=== PATIENT | male | born 1950 | race Caucasian/White ===

== ENCOUNTER 2020-11-27 05:26 | Observation (INO) ==
--- NOTE | 2020-11-12 20:26 | PAT Medication Instructions ---
Medication Instructions Date of Service November 12, 2020 Home Medications apixaban 5 mg tablet (Eliquis) 5 mg PO BID metoprolol tartrate 25 mg tablet 12.5 mg PO BID simvastatin 80 mg tablet 40 mg PO HS lisinopril 20 mg tablet 20 mg PO QAM ASK your prescriber and surgeon apixaban 5 mg tablet (Eliquis) 5 mg PO BID DO NOT take the morning of surgery lisinopril 20 mg tablet 20 mg PO QAM Take morning of surgery With a small sip of water, OTHERWISE NOTHING TO EAT OR DRINK AFTER MIDNIGHT: metoprolol tartrate 25 mg tablet 12.5 mg PO BID Take evening before surgery metoprolol tartrate 25 mg tablet 12.5 mg PO BID simvastatin 80 mg tablet 40 mg PO HS Other Notes If you have any questions please call us at [phone] or [phone] or [phone] or [phone]
--- NOTE | 2020-11-14 09:15 | Anesthesiology Consultation ---
Date of Service November 14, 2020 Assessment & Plan (1) Encounter for pre-operative examination: - COVID screening: Per assessment on 11/05: Travel screen negative, no known COVID-19 positive contacts or current COVID-19 related symptoms. Patient vacc inated. Surgeon arranging preop COVID testing. Awaiting results. - Geethaquis instructions: per surgeon/prescriber/anticoagulation clinic - PCP office visit (11/12/20): "able to perform 4 METs functional capacity: Yes.. using calculator from [employer].. The patient is estimated perioperative cardiac (for ACS) risk is 0.38%. The patient is average pulmonary risk." Chart Review Chart Review: Acceptable Risk for Surgery and Patient seen in Pre Admission Testing Teaching & Discussion Pre-Anesthesia Teaching/Discussion Notes: Instructed NPO after midnight before surgery,except medications with 15 cc of water. Medication instructions provided according to the PAT guidelines. History Surgery Operation Date: 11/28/20 10:05 Proposed Procedures p L3-L4 Decompression with Possible Coflex Spinal Cord Monitoring - Larry Looney DO Height/Weight Height: 6 ft 3 in Weight: 127.5 kg Allergies Allergy/AdvReac Type Severity Reaction Status Date / Time povidone-iodine Allergy Severe Skin Unverified 11/14/20 10:02 [From Betadine] blistering and "leather-like" skin soap [From Betadine] Allergy Severe Skin Unverified 11/14/20 10:02 blistering and "leather-like" skin Medications Home Medications Medication Instructions Recorded Confirmed Last Taken apixaban 5 mg tablet (Eliquis) 5 mg PO BID 01/30/18 11/05/20 Unknown metoprolol tartrate 25 mg tablet 12.5 mg PO BID 01/30/18 11/05/20 Unknown simvastatin 80 mg tablet 40 mg PO HS 01/30/18 11/05/20 Unknown lisinopril 20 mg tablet 20 mg PO QAM 11/05/20 11/05/20 Unknown Past Medical History Medical History (Updated 11/14/20 @ 09:47 by Shahla Willett) Atrial fibrillation follows with Dr. Erwin ([facility]) Chronic back pain Degenerative disc disease Gout Hyperlipidemia Hypertension Exercise / Class Metabolic Activity II 4-5 Yardwork/Stairs/Walk up hill (one FS (no CP, no SOB)) Past Family History Family History Father Stented coronary artery Other No family history of adverse response to anesthesia Past Surgical History Surgical History H/O inguinal hernia repair right (multiple) History of carpal tunnel surgery bilateral History of cholecystectomy History of colonoscopy History of elbow surgery ulnar nerve release left x1 ulnar nerve release right x2 History of endoscopic sinus surgery Hx of cervical discectomy Hx of lumbar discectomy S/P epidural steroid injection Past Anesthesia History No Hx of Anesthesia Complications and No Family Hx of Anesthesia Complications History of PONV No Hx of PONV and No Hx of Motion Sickness Social History Smoking Status: Former smoker tobacco type: cigarettes and smokeless tobacco Do You Dip or Chew Tobacco: Yes (1 can/week (advised none DOS)) Smoking End Date: Quit 1979 Hx Alcohol Use: Yes Alcohol type: hard liquor alcohol intake frequency: 0-2 drinks per day (1 (12 ounce) drink/day ) Hx Substance Use: No substance use type: does not use Review of Systems Patient denies chest pain, shortness of breath, dyspnea on exertion, fever, chills, cough, wheezing, palpitations. Physical Exam Vital Signs VITALS BP 119/81 P 69 TEMP 98.4 SP02 95%RA RESP 18 PHYSICAL Mildly decreased cervical extension range of motion. Full TMJ range of motion. TMD 4 finger breaths Mallampati Score 1 Dentition: full upper/partial lower Lungs: clear throughout to auscultation Cardiac: regular rate and rhythm, no murmurs noted Spine: normal Carotid arteries: negative bruit Extremities: no edema Lab Results Anesthesia Preop Results Results Anesthesia Widget: WBC 13.31 K/uL (4.8-10.8) H 11/14/20 Hgb 15.8 g/dL (14.0-18.0) 11/14/20 Hct 45.9 % (42-52) 11/14/20 Plt 189 K/uL (130-400) 11/14/20 PT 11.4 Seconds (9.0-12.0) 11/14/20 PTT 28.7 Seconds (21.0-31.0) 11/14/20 INR 1.1 (0.9-1.1) 11/14/20 Urine Color [place] 11/14/20 Urine Appearance Clear (Clear) 11/14/20 Urine pH 5.0 (4.5-7.5) 11/14/20 Urine Specific [place] 1.033 (1.000-1.030) H 11/14/20 Urine Protein Trace (Negative) H 11/14/20 Urine Glucose (UA) Negative (Negative) 11/14/20 Urine Ketones Trace (Negative) H 11/14/20 Urine Blood Negative (Negative) 11/14/20 Urine Nitrite Positive (Negative) A 11/14/20 Urine Bilirubin 1+ (Negative) H 11/14/20 Urine Urobilinogen Negative (Negative) 11/14/20 Urine Leukocyte Esterase 1+ (Negative) H 11/14/20 Urine WBC (Auto) 1-5 /hpf (0-5) 11/14/20 Urine RBC (Auto) 5-10 /hpf (0-4) H 11/14/20 Urine Hyaline Casts (Auto) 5-10 /lpf (0-5) H 11/14/20 Urine Epithelial Cells (Auto) >30 /lpf (0-5) H 11/14/20 Urine Bacteria (Auto) Negative (Negative) 11/14/20 Blood Type A Positive 11/14/20 Antibody Screen NEGATIVE 11/14/20 Lab Comments: Surgeon's office made aware of elevated WBC* Testing Laboratory Results 10/13/20 SODIUM 138 POTASSIUM 4.7 CHLORIDE 104 CO2 22 BUN 13 CREATININE 1.2 GLUCOSE 123 Electrocardiogram Date: 11/12/20 NSR at 65bpm. LAD. Chest X-Ray Date: 11/14/20 Findings: + NAD Echocardiogram Date: 01/31/18 EF 55 to 60%. No regional motion abnormality. Grade 1 diastolic dysfunction. No significant valvular disease. Stress Test Date: 03/06/18 Type: exercise Negative for ischemia by EKG criteria. 86% MPHR. 7.0 METS.
[2020-11-27] MEDS ORDERED: CeleBREX 200 MG CAP PO SCH (06:00)
[2020-11-27] MEDS ORDERED: GABAPENTIN 300 MG CAP PO SCH (06:00)
[2020-11-27] MEDS ORDERED: ACETAMINOPHEN 500 MG TAB PO SCH (06:00)
[2020-11-27] MEDS ORDERED: LR 15ML/HR IV SCH (06:00)
[2020-11-27] MEDS ORDERED: LIDOCAINE 2% 2 ML VIAL/AMP(20MG/ML) INFIL ONE (06:38)
[2020-11-27] MEDS ORDERED: DEXAMETHASONE SOD INJ 4 MG/ML VIAL ONE (06:38)
[2020-11-27] MEDS ORDERED: LARYING-O-JET KIT (LTA) ONE (06:38)
[2020-11-27] MEDS ORDERED: ONDANSETRON INJ 2 MG/ML 2 ML VIAL ONE (06:38)
[2020-11-27] MEDS ORDERED: ROCURONIUM BROMIDE 10 MG/ML 5 ML VIAL IV ONE ×4 (06:38→09:52)
[2020-11-27] MEDS ORDERED: fentaNYL citrate 100 MCG/2 ML VIAL ONE ×2 (06:38→10:27)
[2020-11-27] MEDS ORDERED: PROPOFOL IV EMULSION 10 MG/ML 20 ML VIAL IV ONE ×2 (06:38→06:43)
[2020-11-27] MEDS ORDERED: HYDROmorphone INJ 2 MG/ML SYR/VIAL ONE (06:39)
[2020-11-27] MEDS ORDERED: EPINEPHrine INJ 1 MG/ML AMP ONE (07:16)
[2020-11-27] MEDS ORDERED: BUPIVACAINE 0.5 % 5 MG/1 ML MPF 30ML VIAL ONE (07:16)
--- NOTE | 2020-11-27 07:55 | History & Physical Bridge Note ---
Date of Service November 27, 2020 History & Physical Bridge Note I have examined the patient, reviewed the History & Physical and in the interval since the performance of the History & Physical I have noted the following changes of clinical significance: no changes noted
--- NOTE | 2020-11-27 07:56 | History & Physical Report ---
Date of Service November 27, 2020 Assessment & Plan (1) Neurogenic claudication due to lumbar spinal stenosis: Plan: L3-L4 decompression with possible Coflex History of Present Illness Chief Complaint: Back and bilateral leg pain Primary Care Provider: NO PCP This is a 70-year-old male who presents with chronic persistent back and leg pain after failing extensive course of nonoperative care is here for surgical invention. Allergies Allergy/AdvReac Type Severity Reaction Status Date / Time povidone-iodine Allergy Severe Skin Verified 11/27/20 05:58 [From Betadine] blistering and "leather-like" skin soap [From Betadine] Allergy Severe Skin Verified 11/27/20 05:58 blistering and "leather-like" skin Home Medications Medication Instructions Recorded Confirmed Type apixaban 5 mg tablet (Eliquis) 5 mg PO BID 01/30/18 11/27/20 History metoprolol tartrate 25 mg tablet 12.5 mg PO BID 01/30/18 11/27/20 History simvastatin 80 mg tablet 40 mg PO HS 01/30/18 11/27/20 History lisinopril 20 mg tablet 20 mg PO QAM 11/05/20 11/27/20 History Past Med/Surg History Medical History (Updated 11/27/20 @ 07:56 by Larry Looney DO) Atrial fibrillation follows with Dr. Erwin ([facility]) Chronic back pain Degenerative disc disease Gout Hyperlipidemia Hypertension Surgical History H/O inguinal hernia repair right (multiple) History of carpal tunnel surgery bilateral History of cholecystectomy History of colonoscopy History of elbow surgery ulnar nerve release left x1 ulnar nerve release right x2 History of endoscopic sinus surgery Hx of cervical discectomy Hx of lumbar discectomy S/P epidural steroid injection Family History Father Stented coronary artery Other No family history of adverse response to anesthesia Social History Smoking Status: Never smoker Smoking End Date: Quit 1979; Second Hand Exposure: Yes (hx); Do You Dip or Chew Tobacco: Yes (1 can/week (advised none DOS)); Tobacco Cessation Education Requested by Patient: No Hx Alcohol Use: Yes Alcohol type: hard liquor Hx Substance Use: No Preferred Language: Portuguese Communication Ability: Effective Health Systems Analyst Required: No Beliefs That Will Affect Care: None Current Living Situation: Spouse Other Information That Helps Us Care for You: No Feels Safe at Home: Yes Safety Concerns: Feels Safe At This Time Assistive Devices: Glasses and Hearing Aid - Bilateral Physical Exam Physical Exam: Patient is alert and oriented Heart regular rhythm Lungs clear to auscultation Results & Data ([facility]) Vital Signs (Past 12 Hours) Vital Signs Temp Pulse Resp BP Pulse Ox 11/27/20 06:03 37.4 C 68 18 140/82 95
[2020-11-27] MEDS ORDERED: SUCCINYLCHOLINE 100MG/5ML SYR IV ONE (08:36)
[2020-11-27] MEDS ORDERED: ePHEDrine sulfate 50 MG/ML SYR ONE (08:37)
[2020-11-27] MEDS ORDERED: PHENYLEPHRINE 100MCG/ML 5ML SYR ONE (08:37)
[2020-11-27] MEDS ORDERED: GLYCOPYRROLATE 0.2 MG/ML VIAL ONE ×2 (09:40→09:48)
[2020-11-27] MEDS ORDERED: FLOSEAL HEMOSTATIC MATRIX 10ML TOP ONE (09:42)
[2020-11-27] MEDS ORDERED: NEOSTIGMINE METHYLSULFATE 1 MG/ML 10ML VIAL ONE (09:43)
--- NOTE | 2020-11-27 09:50 | Operative Report ---
Post Operative Report Pre & Post Diagnosis Operation Date: 11/27/20 07:45 Pre-Op Diagnosis: Neurogenic claudication due to lumbar spinal stenosis L3-4 Post-Op Diagnosis: Neurogenic claudication due to lumbar spinal stenosis L3-4 I identified the patient and participated in the time-out.: Yes Procedure Operation Date: 11/27/20 07:45 Actual Procedures #1 lumbar decompression L3-L4 with bilateral medial facetectomies. #2 placement of 16 mm Coflex enter laminar spacer. Surgeon Larry Looney, DO Batch Maker Jania Tello Estimated Blood Loss 25 Findings See Below The patient is 6 foot 3 inches tall weighing over 122 kg with a BMI in excess of 34. The patient's body habitus did contribute to significant technical difficulty and at least 50% increase to the operative time. Specimens None Indications This is a 70-year-old male presents with above-mentioned diagnosis after failing course of nonoperative care is here for surgical invention. Description of Procedure Patient was met with identified informed consent obtained. Patient was then taken to the operative suite underwent ablation placed in a prone position the [place] table top Peter frame. All bony prominences well-padded eyes inspected to ensure no external pressure placed upon the. This point the lumbar spine was prepped and draped in normal sterile fashion. Sharp dissection with the assistance of Bovie cautery performed down to and exposing the interlaminar space at L3-L4. Several 10 retractors placed. Then performed a midline decompression including bilateral medial facetectomies to address severe spinal stenosis. There is marked adhesions along the left subarticular region. An incidental durotomy was noted. I was able to repair this with 4-0 Nurolon. As a precaution I did place a small DuraGen patch and DuraSeal over this region. After the complete decompression was complete a placed a 16 mm Coflex and crimped into position. The incision was then copiously irrigated 10 round [place] drain inserted. The incision was then closed with 0 Vicryl the fascia 2-0 Vicryl subcutaneously and 4 Monocryl for final skin closure. Steri-Strip Steri- Strips placed. Patient waken taken to PACU stable condition. Please note spinal cord monitoring was utilized at the procedure no changes noted. Lastly Jania Tello was present at the entire surgery involved in patient positioning complex portions of the surgery and final skin closure. I attest to the content of the Intraoperative Record and any orders documented therein. Any exceptions are noted below.
[2020-11-27] MEDS ORDERED: ePHEDrine sulfate 50 MG/ML AMP IV PRN (10:25)
[2020-11-27] MEDS ORDERED: ATROPINE SULFATE 0.1 MG/ML 10ML SYR IV PRN (10:25)
[2020-11-27] MEDS ORDERED: HYDROmorphone INJ 1 MG/ML SYRINGE IV PRN ×2 (10:25→11:15)
[2020-11-27] MEDS ORDERED: ONDANSETRON INJ 2 MG/ML 2 ML VIAL IV PRN ×2 (10:25→11:15)
[2020-11-27] MEDS: fentaNYL citrate 100 MCG/2 ML VIAL IV PRN ×2 (10:29→10:35)
--- NOTE | 2020-11-27 10:29 | Fluoroscopy Report ---
FL spine 1V any level CLINICAL HISTORY: L3-L4 DECOMPRESSION COMPARISON STUDY: Lumbar spine MRI November 04, 2020. FLUOROSCOPY TIME: 5 seconds. FLUOROSCOPIC IMAGES: 1 FINDINGS: Fluoroscopy was provided during placement of an L3-L4 Coflex. IMPRESSION: Fluoroscopy provided during placement of an L3-L4 Coflex. ACT 112: Negative or not required by law. Electronically signed by: Daljit Bryson M.D. 11/27/2020 10:28 AM
--- NOTE | 2020-11-27 11:07 | Anesthesiology Progress Note ---
Date of Service November 27, 2020 Anesthesia Post Procedure Vital Signs Vital Signs: Temp Pulse Pulse Resp BP Pulse Ox 11/27/20 10:50 36.2 C L 75 12 119/72 97 11/27/20 10:40 77 12 116/71 95 11/27/20 10:30 71 13 120/70 95 11/27/20 10:20 73 15 121/69 99 11/27/20 10:10 73 13 131/71 99 11/27/20 10:02 36.9 C 80 15 120/70 99 11/27/20 06:03 37.4 C 68 18 140/82 95 Pain Intensity Back: Pain Intensity: 2 Transfer of Care Handoff Completed per policy Notes Mental Status: alert / awake / arousable and participated in evaluation Patient Amnestic to Procedure: Yes Nausea / Vomiting: adequately controlled Pain: adequately controlled Airway Patency, RR, SpO2: stable & adequate BP & HR: stable & adequate Hydration State: stable & adequate Anesthetic Complications: no major complications apparent and Pt Satisfied with anesthetic care
[2020-11-27] MEDS ORDERED: METOCLOPRAMIDE HCL INJ 5 MG/ML 2 ML VIAL IV PRN (11:15)
[2020-11-27] MEDS ORDERED: FAMOTIDINE 20 MG TAB PO PRN (11:15)
[2020-11-27] MEDS ORDERED: DO NOT ADMINISTER PNEUMOCOCCAL VACCINE PRN (11:15)
[2020-11-27] MEDS ORDERED: PROMETHAZINE HCL 12.5 MG in SODIUM CHLORIDE 0.9% 50 ML IV PRN (11:15)
[2020-11-27] MEDS ORDERED: ACETAMINOPHEN 500 MG TAB PO PRN (11:15)
[2020-11-27] MEDS ORDERED: ACETAMINOPHEN 1,000 MG/100 ML VIAL IV PRN (11:15)
[2020-11-27] MEDS ORDERED: oxyCODONE HCL IR 5 MG TAB (IMMEDIATE RELEASE) PO PRN (11:15)
[2020-11-27] MEDS ORDERED: traMADol HCL 50 MG TABLET PO PRN (11:15)
[2020-11-27] MEDS ORDERED: diphenhydrAMINE Capsule 25 MG CAP PO PRN (11:15)
[2020-11-27] MEDS ORDERED: MAGNESIUM HYDROXIDE SUSP 30 ML UDC PO PRN (11:15)
[2020-11-27] MEDS ORDERED: DO NOT ADMINISTER FLU VACCINE PRN (11:15)
[2020-11-27] MEDS ORDERED: ONDANSETRON 4 MG OD TAB PO PRN (11:15)
[2020-11-27] MEDS ORDERED: hydrOXYzine HCl 25 MG TAB PO PRN (11:15)
[2020-11-27] MEDS ORDERED: bisacodyL 10 MG SUPP PR PRN (11:15)
[2020-11-27] MEDS ORDERED: HYDROmorphone INJ 0.5 MG/0.5 ML SYR IV PRN (11:15)
[2020-11-27] MEDS ORDERED: NALOXONE HCL 0.4 MG/1 ML VIAL/CARP IV PRN (11:15)
[2020-11-27] MEDS ORDERED: LORazepam 0.5 MG/1 ML VIAL IV PRN (11:15)
[2020-11-27] MEDS ORDERED: SOD PHOSPHATE/SOD BIPHOSPHATE ENEMA 132 ML BTL PR PRN (11:15)
[2020-11-27] MEDS ORDERED: ALUMINUM/MAGNESIUM SUSP 30 ML UDC PO PRN (11:15)
[2020-11-27] MEDS ORDERED: LORazepam 0.5 MG TAB PO PRN (11:15)
[2020-11-27] MEDS: dexAMETHasone 6 MG in SYRINGE 0 ML IV SCH ×2 (12:07→21:13)
[2020-11-27] MEDS: LACTATED RINGER'S 1,000 ML IV SCH ×2 (12:08→18:37)
--- NOTE | 2020-11-27 13:51 | Hospitalist Consultation ---
Date of Consultation November 27, 2020 Assessment & Plan (1) S/P spinal surgery: This is a 70yo M with a PMH of atrial fibrillation on Eliquis, HTN, HLD and other medical problems listed below who is POD#0 s/p L3-4 decompression and fusion by Dr. Looney. POD#0 s/p L3-4 decompression and fusion by Dr. Looney Per ortho for pain control, wound care, anticoagulation and activities Monitor H&H (EBL 25ml), preop hgb 15.8 Continue incentive spirometry, PT/OT when appropriate (2) Atrial fibrillation: Continue home Lopressor with hold parameters Hold Eliquis post-operatively. Plan to resume once surgical service determines it safe to do so (3) Hypertension: Normotensive. Continue lisinopril, Lopressor with hold parameters (4) HLD (hyperlipidemia): Continue statin (5) Alcohol use: Drinks 10 oz liquor nightly, last drink yesterday evening Alcohol withdrawal precautions, IV ativan PRN, daily PO thiamine and folic acid PCP: Rip ([facility]) Dispo: Per primary service Patient seen in collaboration with Dr. Hensley. Please see addendum. Supervising Physician Co-Signing Physician Notes Patient is a 70-year-old male with history of atrial fibrillation on chronic anticoagulation with Eliquis, alcohol use disorder and other medical problems was consulted for postop medical management after having lumbar surgery by Dr. Looney. Patient is doing well postoperatively. He denies any pain at the surgical site. Also denies any chest pain, dyspnea, dizziness, nausea, abdominal pain. On exam patient is obese, no apparent distress, normocephalic atraumatic, lungs are clear to auscultation, normal breath sounds, S1-S2, no murmur, trace pedal edema, abdomen soft, nontender, normal bowel sounds, Back- surgical site in dressing, +drain, alert, awake, oriented, grossly no focal deficits. Lumbar spinal stenosis with neurogenic claudication S/P lumbar decompression surgery POD#0. Monitor for postop blood loss anemia. Continue incentive spirometer. Activity, wound care, DVT prophylaxis as per primary team. Consider resuming Eliquis if no contraindication tomorrow. Pain control. Bowel regimen to prevent constipation. Agree with starting thiamine, folic acid and monitoring for alcohol withdrawal. I personally reviewed the record. Patient is interviewed and examined at bedside. Patient's care is coordinated with Ronna Verduzco PA-C. Please refer to the documentation above for details of patient's presentation and for discussion of other issues. History of Present Illness Reason for Consultation: post op med mgmt Attending Physician: Larry Looney DO History of Present Illness This is a 70yo M with a PMH of atrial fibrillation on Eliquis, HTN, HLD and other medical problems listed below who is POD#0 s/p L3-4 decompression and fusion by Dr. Looney. Follows with Dr. Erwin at [facility]. Feeling well post-operatively. Denies any surgical site pain. No pain or paresthesias in BLE. Tolerating clear liquids without issues. Resting with bed flat. No fever, chills, chest pain, SOB, nausea, vomiting, abdominal pain, dysuria, diarrhea or constipation. Urinating without issue post-operatively. Allergies Allergy/AdvReac Type Severity Reaction Status Date / Time povidone-iodine Allergy Severe Skin Verified 11/27/20 05:58 [From Betadine] blistering and "leather-like" skin soap [From Betadine] Allergy Severe Skin Verified 11/27/20 05:58 blistering and "leather-like" skin Home Medications Medication Instructions Recorded Confirmed Type apixaban 5 mg tablet (Eliquis) 5 mg PO BID 01/30/18 11/27/20 History metoprolol tartrate 25 mg tablet 12.5 mg PO BID 01/30/18 11/27/20 History simvastatin 80 mg tablet 40 mg PO HS 01/30/18 11/27/20 History lisinopril 20 mg tablet 20 mg PO QAM 11/05/20 11/27/20 History Patient History Medical History Atrial fibrillation follows with Dr. Erwin ([facility]) Chronic back pain Degenerative disc disease Gout Hyperlipidemia Hypertension Surgical History H/O inguinal hernia repair right (multiple) History of carpal tunnel surgery bilateral History of cholecystectomy History of colonoscopy History of elbow surgery ulnar nerve release left x1 ulnar nerve release right x2 History of endoscopic sinus surgery Hx of cervical discectomy Hx of lumbar discectomy S/P epidural steroid injection Family History Father Stented coronary artery Other Diabetes Heart disease No family history of adverse response to anesthesia Social History Smoking Status: Former smoker Smoking End Date: Quit 1979; Second Hand Exposure: Yes (hx); Do You Dip or Chew Tobacco: Yes (1 can/week (advised none DOS)); Tobacco Cessation Education Requested by Patient: No Hx Alcohol Use: Yes Alcohol type: hard liquor Hx Substance Use: No Preferred Language: Divehi Communication Ability: Effective Web Merchandiser Required: No Beliefs That Will Affect Care: None Current Living Situation: Spouse Other Information That Helps Us Care for You: No Feels Safe at Home: Yes Safety Concerns: Feels Safe At This Time Assistive Devices: Oxygen - Continuous Review of Systems Review of Systems: At least ten systems reviewed and negative except as noted in the HPI. Physical Exam Physical Exam: General Appearance: WD/WN, vitals as above, NAD, lying in bed, pleasant, conversing easily, obese Head: normocephalic, atraumatic Eyes: normal inspection, PERRL, conjunctivae normal, anicteric sclerae ENT: external ear and nose normal, oropharynx normal Neck: normal visual inspection, trachea midline, no thyromegaly Respiratory: normal respiratory effort, lungs clear to auscultation, no wheeze, rales, rhonchi. No accessory muscle use Cardiovascular: regular rate, rhythm, no murmur, normal peripheral pulses, no BLE edema. Vessels: no JVD Abdomen/GI: normal bowel sounds, soft, nontender, no hepatosplenomegaly Extremities/Musculoskeletal: + Spinal dressing, [place] drain visualized. No cyanosis or clubbing, extremities motor strength 5/5 Neurologic: PERRL, CN's II-XI intact bilaterally and moves all extremities Psychiatric: A+Ox3, euthymic affect Skin: no rashes, normal color, warm/dry Results & Data Results & Data ([facility]) Vital Signs (Past 12 Hours) Vital Signs Temp Pulse Pulse Pulse Resp BP Pulse Ox 11/27/20 13:30 36.6 C 87 16 113/78 96 11/27/20 12:22 36.3 C L 82 16 143/84 H 96 11/27/20 11:45 36.6 C 79 16 119/77 95 11/27/20 11:15 36.5 C 77 18 116/80 94 11/27/20 10:50 36.2 C L 75 12 119/72 97 11/27/20 10:40 77 12 116/71 95 11/27/20 10:30 71 13 120/70 95 11/27/20 10:20 73 15 121/69 99 11/27/20 10:10 73 13 131/71 99 11/27/20 10:02 36.9 C 80 15 120/70 99 11/27/20 06:03 37.4 C 68 18 140/82 95
[2020-11-27] MEDS ORDERED: LORazepam 1 MG/2 ML VIAL IV PRN (14:49)
[2020-11-27] MEDS: THIAMINE HCL 100 MG TAB PO SCH (15:45)
[2020-11-27] MEDS: ceFAZolin 2000MG 2,000 MG/15 ML SYR IV SCH ×2 (15:45→23:30)
[2020-11-27] MEDS: FOLIC ACID 1 MG TAB PO SCH (15:45)
[2020-11-27] MEDS ORDERED: SIMVASTATIN 40 MG TAB PO SCH (21:00)
[2020-11-27] MEDS ORDERED: DOCUSATE SODIUM/SENNA 50/8.6MG TAB PO SCH (21:00)
[2020-11-27] MEDS: METOPROLOL TARTRATE 25 MG TAB PO SCH (21:16)
[2020-11-28] MEDS: LACTATED RINGER'S 1,000 ML IV SCH (01:24)
[2020-11-28] MEDS: dexAMETHasone 6 MG in SYRINGE 0 ML IV SCH (03:38)
[2020-11-28] MEDS: POLYETHYLENE (MIRALAX) 17 GM PACK PO SCH ×2 (05:01→13:53)
[2020-11-28] MEDS ORDERED: ACETAMINOPHEN 500 MG TAB PO SCH (06:00)
[2020-11-28] MEDS ORDERED: CeleBREX 200 MG CAP PO SCH (06:00)
[2020-11-28] MEDS ORDERED: GABAPENTIN 300 MG CAP PO SCH (06:00)
[2020-11-28] MEDS ORDERED: LR 15ML/HR IV SCH (06:00)
[2020-11-28 07:40] LABS: Hematocrit (blood only) 48.5 % (42-52); Hemoglobin 15.9 g/dL (14.0-18.0); Mean Corpuscular Hemoglobin 31.9 pg (25-34); Mean Corpuscular Hgb Conc 32.8 g/dL (32-36); Mean Corpuscular Volume 97.2 fL (80-100); Mean Platelet Volume 11.3 fL (7.4-10.4); Platelet Count 280 K/uL (130-400); RDW Coefficient of Variation 13.3 % (11.5-14.5); RDW Standard Deviation 47.2 fL (36.4-46.3); Red Blood Count 4.99 M/uL (4.7-6.1); White Blood Count 23.58 K/uL (4.8-10.8)
[2020-11-28] MEDS: METOPROLOL TARTRATE 25 MG TAB PO SCH (07:56)
[2020-11-28] MEDS: THIAMINE HCL 100 MG TAB PO SCH (07:57)
[2020-11-28] MEDS: FOLIC ACID 1 MG TAB PO SCH (07:57)
--- NOTE | 2020-11-28 08:02 | Hospitalist Progress Note ---
Date of Service November 28, 2020 Assessment & Plan (1) S/P spinal surgery: Plan: This is a 70yo M with a PMH of atrial fibrillation on Eliquis, HTN, HLD and other medical problems listed below who is POD#1 s/p L3-4 decompression and fusion by Dr. Looney. POD#1 s/p L3-4 decompression and fusion by Dr. Looney Per ortho for pain control, wound care, anticoagulation and activities Monitor H&H (EBL 25ml), hgb 15.9 (preop hgb 15.8) Continue incentive spirometry, PT/OT when appropriate (2) Atrial fibrillation: Plan: Continue home Lopressor with hold parameters Will plan to resume Eliquis tomorrow AM, 11/29/20, per discussion with Dr. Looney (3) Hypertension: Plan: Normotensive. Continue lisinopril, Lopressor with hold parameters (4) HLD (hyperlipidemia): Plan: Continue statin (5) Alcohol use: Plan: Drinks 10 oz liquor nightly, last drink yesterday evening Alcohol withdrawal precautions, IV ativan PRN, daily PO thiamine and folic acid No signs/sx of withdrawal to date PCP: Rip ([facility]) Dispo: Per primary service Patient seen in collaboration with Dr. Hensley. Please see addendum. Admission and Anticipated Discharge Date Admission Date: November 27, 2020 Supervising Physician Co-Signing Physician Notes Patient is seen and examined at bedside. No significant back pain at surgical site. Denies any chest pain, dyspnea, dizziness, nausea, headache, abdominal pain. + flatus. On exam patient is obese, no apparent distress, normocephalic atraumatic, lungs are clear to auscultation, normal breath sounds, S1-S2, no murmur, trace pedal edema, abdomen soft, nontender, normal bowel sounds, Back- surgical site in dressing,alert, awake, oriented, grossly no focal deficits. Lumbar spinal stenosis with neurogenic claudication S/P lumbar decompression surgery POD#1. Pain is controlled. Continue bowel regimen. Continue incentive spirometer. Activity, wound care, DVT prophylaxis as per primary team. Plan to resume Eliquis tomorrow for anticoagulation for afib. No signs of alcohol withdrawal currently. Continue thiamine, folic acid. I personally reviewed the record. Patient is interviewed and examined at bedside. Patient's care is coordinated with Ronna Verduzco PA-C. Please refer to the documentation above for details of patient's presentation and for discussion of other issues. Subjective Patient seen and examined in 379-2. Lying flat in bed. No surgical site pain or paresthesias in BLE. No chest pain, SOB, nausea, vomiting, abdominal pain. Tolerating regular diet. Urinating without issue. Passing flatus but no bowel movement yet. No s/sx of alcohol withdrawal, VSS stable. Review of Systems Review of Systems: At least ten systems reviewed and negative except as noted in the HPI. Physical Exam Physical Exam: General Appearance: WD/WN, vitals as above, NAD, lying in bed, pleasant, conversing easily, obese Head: normocephalic, atraumatic Eyes: normal inspection, PERRL, conjunctivae normal, anicteric sclerae ENT: external ear and nose normal, oropharynx normal Neck: normal visual inspection, trachea midline, no thyromegaly Respiratory: normal respiratory effort, lungs clear to auscultation, no wheeze, rales, rhonchi. No accessory muscle use Cardiovascular: regular rate, rhythm, no murmur, normal peripheral pulses, no BLE edema. Vessels: no JVD Abdomen/GI: normal bowel sounds, soft, nontender, no hepatosplenomegaly Extremities/Musculoskeletal: + Spinal dressing, [place] drain visualized. No cyanosis or clubbing, extremities motor strength 5/5 Neurologic: PERRL, CN's II-XI intact bilaterally and moves all extremities Psychiatric: A+Ox3, euthymic affect Skin: no rashes, normal color, warm/dry Results & Data Results & Data ([facility]) Vital Signs (Past 12 Hours) Vital Signs Temp Pulse Resp BP BP Pulse Ox 11/28/20 07:18 36.3 C L 68 18 158/87 H 92 11/28/20 05:48 36.6 C 57 L 16 150/78 H 93 11/28/20 01:27 36.8 C 67 117/76 93 11/27/20 21:31 36.6 C 72 18 132/76 92 Laboratory Results Short CBC 11/28/20 Range/Units 06:32 WBC 23.58 H (4.8-10.8) K/uL Hgb 15.9 (14.0-18.0) g/dL Hct 48.5 (42-52) % Plt Count 280 (130-400) K/uL BMP 11/28/20 06:32 Sodium 137 Potassium 4.8 Chloride 105 Carbon Dioxide 25 BUN 19 H Creatinine 1.07 Glucose 154 H Calcium 9.3 Diagnostic Findings Spine X-Ray 11/27/20 07:45 FL spine 1V any level CLINICAL HISTORY: L3-L4 DECOMPRESSION COMPARISON STUDY: Lumbar spine MRI November 04, 2020. FLUOROSCOPY TIME: 5 seconds. FLUOROSCOPIC IMAGES: 1 FINDINGS: Fluoroscopy was provided during placement of an L3-L4 Coflex. IMPRESSION: Fluoroscopy provided during placement of an L3-L4 Coflex. ACT 112: Negative or not required by law. Electronically signed by: Daljit Bryson M.D. 11/27/2020 10:28 AM
[2020-11-28 08:12] LABS: Calcium 9.3 mg/dl (8.5-10.1); Est GFR (African American) 81.1 ml/min; Potassium 4.8 mmol/L (3.5-5.1)
[2020-11-28] MEDS ORDERED: lisinopril 20 MG TAB PO SCH (09:00)
--- NOTE | 2020-11-28 10:24 | Orthopedic Progress Note ---
Date of Service November 28, 2020 Assessment & Plan (1) Neurogenic claudication due to lumbar spinal stenosis: Plan: This time we will initiate physical therapy if he tolerates this well we may discharge home today. Admission and Anticipated Discharge Date Admission Date: November 27, 2020 Subjective Patient is back pain is controlled denies any leg pain denies any headaches nausea or vomiting. Denies any photophobia. Physical Exam Physical Exam: On exam he is good strength testing appears comfortable. I did have him sit up and he was able to do so without discomfort. Results & Data ([facility]) Vital Signs (Past 12 Hours) Vital Signs Temp Pulse Resp BP BP Pulse Ox 11/28/20 07:18 36.3 C L 68 18 158/87 H 92 11/28/20 05:48 36.6 C 57 L 16 150/78 H 93 11/28/20 01:27 36.8 C 67 117/76 93
--- NOTE | 2020-11-28 12:28 | Discharge Summary ---
Date of Service November 28, 2020 Admission HPI Per Admitting Provider This is a 70-year-old male who presents with chronic persistent back and leg pain after failing extensive course of nonoperative care is here for surgical invention. Principal Diagnosis Lumbar spinal stenosis with neurogenic claudication Discharge Data Allergies Allergy/AdvReac Type Severity Reaction Status Date / Time povidone-iodine Allergy Severe Skin Verified 11/27/20 05:58 [From Betadine] blistering and "leather-like" skin soap [From Betadine] Allergy Severe Skin Verified 11/27/20 05:58 blistering and "leather-like" skin Consultations 11/27/20 11:15 Consult Hospitalist Routine Procedures Performed Operation Date: 11/27/20 07:45 Actual Procedures p L3-L4 Decompression with Coflex, Spinal Cord Monitoring(Not Applicable) - Larry Looney DO Ordered Studies 11/27/20 07:45 FL spine 1V any level Routine Hospital Course (1) Neurogenic claudication due to lumbar spinal stenosis: Patient with lumbar decompression. He did have an incidental durotomy that was repaired. I did keep him overnight and the next morning he had no pain no headaches nausea vomiting. He tolerated physical therapy without issue. Subsequently discharged home. Discharge orders instructions found the chart for further view. Total Time Total Time Spent Total Time Spent (In Minutes): 20 minutes Discharge Plan Discharge Items Patient Disposition: Home - Self-Care Reason For Visit: Intervertebral Disc Disorders with Radiculopathy Discharge Diagnosis: Lumbar spinal stenosis with claudication Activity: As commented below Non-emergency contact: Primary Care Provider Call non-emergency contact if: you have any medication questions Follow-up/Referrals: PCP,NO [Primary Care Provider] - Diet: Regular Addtl Attending Provider Instructions: ACTIVITY RECOMMENDATIONS: SELF CARE INSTRUCTIONS AFTER THORACIC/LUMBAR FUSIONS 1. You may walk to your tolerance. It is good exercise for your legs and back. Expect some back and intermittent leg aches and pains. 2. You may perform "counter-top" level activities (make a sandwich, tiffanie with a project, etc.). 3. No bending or lifting of more than 10 pounds or back twisting of any nature (roll like a log when turning in bed). 4. You may ride in a car for 20-30 minutes at a time. No driving until after your first visit with your doctor. 5. Frequent changes of position and restricting sitting to 30 minutes at a time will help limit the amount of back spasms and stiffness you may experience. 6. You may discontinue the use of ambulatory aids (cane, crutches, etc.) once your strength and confidence allow. 7. You may die repair machinist the shower and let water strike your incision when you arrive home at least once daily. Do not take a tub bath, sit in a hot tub or go into a swimming pool until after your first recheck in the office. SPECIAL CARE INSTRUCTIONS: VERY IMPORTANT TO READ AND REVIEW A. Your surgical incision has been closed with a cosmetic suture under the skin that will dissolve in about 6 weeks. In 14 days, you can use a pair of clean scissors and cut the suture that is left outside of the skin at the ends of your incision. 1. The small skin tapes can be removed 7 days after surgery if they have not fallen off by that point. 2. You may keep the wound open to air as much as possible to promote healing after post-op day number 5 unless told otherwise by your doctor. 3. If you think the wound looks like it is becoming infected (redness or worsening drainage) and/or you are experiencing fever, chill or worsening back pain and muscle spasms, contact the office so that we may evaluate you as soon as possible. B. Complications are uncommon, but please contact us if you have any signs or symptoms of: 1. wound infection (fever higher than 102.5 degrees F, redness, separation of wound, drainage, or increasing pain from the incision) 2. blood clots in legs (pain, swelling, redness and warmth in legs) 3. urinary tract infection (fever higher than 102.5 degrees F, burning upon urination or increased frequency of urination) 4. nerve problems (inability to walk on your toes or heels, numbness, loss of bowel or bladder control) 5. any other symptoms that concern you C. Please call the office at if you have any concerns or questions about your operation or recovery. D. No smoking! Smoking drastically decreases the chance of a solid fusion. E. Do not take any anti-inflammatory medications (Indocin, Advil, Motrin, Aspirin, Naprosyn, etc.) as these may inhibit the chance of a solid fusion. Tylenol is okay to take for pain. MANAGING PAIN AFTER SPINAL SURGERY 1. Narcotic medication is intended for short-term use and will be provided for surgical pain. Surgical pain usually lasts for a period of 4-6 weeks. Narcotic medication includes Percocet, Vicodin, Darvocet, Tylenol #3 or Lortab. 2. Longer-term pain is more appropriately treated with non-narcotic medication such as Tylenol ES. 3. Muscle spasm is not appropriately treated with narcotics. Muscle relaxers such as Soma, Flexeril or Skelaxin can be used along with Tylenol ES. 4. Remember that we all live with some "aches and pains". This is not unusual or uncommon after an injury or as we get older. a. Back pain is expected and may include muscle spasms for 4 to 6 weeks after surgery. The pain should gradually improve. If the pain worsens for no apparent reason, please contact the office. b. Intermittent leg pain may also be experienced and should not be concerned about unless it worsens for no apparent reason. If so, please contact the office. 5. We will provide appropriate medication within the normal guidelines of their prescribed use. We will also be very cautious and aware of potential abuse and extended duration of patients' medication needs. a. Pain medications are for your comfort and to assist with sleep and rest so that the tissue can heal. They are not provided in order to return to normal activity and should not be used through the day. To do so or worsening pain at night can result from ongoing tissue damage and development of tolerance to the prescribed medicine. 6. Please allow 2-3 days to process refills. Prescriptions will not be mailed but must be picked up at the office. FOLLOW UP VISIT: Keep your scheduled follow-up appointment. Any questions, please call the office at . Pending Studies at Discharge: No Stand-Alone Forms: My [employer], Smoking Cessation Medications and DC Order Prescriptions: New tramadol 50 mg tablet 50 mg PO Q6H PRN (Reason: pain, moderate) Qty: 20 RF: 0 oxycodone 5 mg tablet 5 mg PO Q6H PRN (Reason: pain, severe) Qty: 20 RF: 0 Continued simvastatin 80 mg Tablet 40 mg PO HS RF: 0 metoprolol tartrate 25 mg Tablet 12.5 mg PO BID RF: 0 Eliquis 5 mg Tablet 5 mg PO BID RF: 0 lisinopril 20 mg Tablet 20 mg PO QAM RF: 0 Discharge Orders: Discharge Order (Routine); Ordered 11/28/20 Ordered By: Larry Looney Admission Data Admit Date/Time: 11/27/20 11:11 Attending Provider: Larry Looney Admit Provider: Larry Looney Primary Care Provider: PCP,NO Other Providers: Ronna Verduzco ; Ramesh Hensley ; [facility] Other Interventions: Discharge Summary Assessment (RN) Last Done: 11/28/20 10:32
[2020-11-29] MEDS ORDERED: APIXABAN 5 MG TABLET PO SCH (09:00)
== END 2020-11-28 15:58 | disposition home or self-care (01) ==
LOC: ASU 05:26 → 3N 05:26
DX: M48.062 Spinal stenosis, lumbar region with neurogenic claudication; G89.29 Other chronic pain; M10.9 Gout, unspecified; Z79.01 Long term (current) use of anticoagulants; F17.220 Nicotine dependence, chewing tobacco, uncomplicated; I10 Essential (primary) hypertension; Z79.899 Other long term (current) drug therapy; I48.91 Unspecified atrial fibrillation; E78.5 Hyperlipidemia, unspecified